=== PATIENT | female | born 1980 ===

== ENCOUNTER 2016-08-04 02:10 | Emergency (ER) | payer OTHER ==
--- NOTE | 2016-08-04 03:19 | OBHP ---
Datetime: 08/04/2016 03:11 IP Adm Impression: , intrauterine IP Admit Plan: Observation/Evaluation; Discharge home Admit Comment, IP Provider: 35yo edc 11/08 @ 26/2kws presents with c/o passage of copious amount of brown discharge today @ 23:00. She denies bleeding, ctxs, pprom. + coitus 3-4days ago. denies t hreatened ptl with current pre pobhx: x1 allerg wheat; shellfish medic: pnv; zofran prn pshx: choly pmhx: ashthm not on medic i: Brown vag d/c- resolved p: d/w dr huntley pelvic rest, increase water intake f/u next wk with Pelvic Type - PN: Adequate Extremities - PN: Normal Abdomen - PN: Normal Lungs - PN: Normal Heart - PN: Normal Neurologic - PN: Normal HEENT - PN: Normal General - PN: Normal FHR - Baseline A Provider: 130 Membranes, Provider: Intact Contraction Comments Provider: no Comments, ACOG Physical Exam: SSE: SCANT YELLLW BROWN CERVICAL MUCUS no blood cl/th/h Pool Provider: Negative EGA AdmitDate IP: 26.2 Vital Signs Provider: Within Normal Limits IP Chief Complaint: Vaginal bleeding NICHD Variability Prov Fetus A: Moderate 6-25bpm NICHD Accel Fetus A IP Provider: 10X10 FHR Category Provider Fetus A: Category I NICHD Decel Fetus A IP Provider: None Dilatation, Provider: 0 Effacement, Provider: 0 Station, Provider: high Genitourinary Exam: Normal Datetime: 04/23/2016 07:07 Gestation - Est Wks by US: 11 wks Datetime: 04/22/2016 11:31 IP Fetus A Comments: FM + by danielle
[2016-08-04 03:58] VITALS: BMI 38.9
[2016-08-04] MEDS ORDERED: Prenatal Multivit/Folic Acid/Iron Tab PO SCH (09:00)
== END 2016-08-04 03:30 | disposition home or self-care (01) ==
LOC: H.EROB2 02:10
DX: O26.92 Pregnancy related conditions, unspecified, second trimester (principal); N89.8 Other specified noninflammatory disorders of vagina; Z3A.26 26 weeks gestation of pregnancy; O47.02 False labor before 37 completed weeks of gestation, second trimester

== ENCOUNTER 2016-08-22 17:17 | Emergency (ER) | payer OTHER ==
[2016-08-22 17:51] VITALS: BMI 33.3
[2016-08-22] MEDS ORDERED: Lactated Ringer's 1,000 ML IV ONE (18:00)
--- NOTE | 2016-08-22 18:39 | OBHP ---
Datetime: 08/22/2016 18:34 IP Adm Impression: , intrauterine ; No Active Labor; Intact Membranes IP Admit Plan: Observation/Evaluation; Discharge home Admit Comment, IP Provider: The patient is a 36-year-old 2 para 1 last menstrual period 01/23 estimated due date 11/08/2016 estimated gestational age 28 weeks patient presents to labor and delivery complaining at nausea and vomiting for 3 days duration patient reports vomiting multiple ti mes over the last several days. Patient denies any vaginal bleeding contractions or leakage of fluid. Patient states she called her PMD and was instructed to come to the hospital. Past medical history asthma Medications vitamins Surgical history patient had her gallbladder removed No known drug allergies, allergic to shellfish Social history denies alcohol tobacco use Obstetrical history one normal spontaneous vaginal delivery no complications Review of systems patient denies headache chest pain shortness of breath or cold intolerance easy bruisability musculoskeletal or neurological complaints vaginal bleeding dysuria positive for nausea positive for vomiting Vital signs stable afebrile Physical exam see notes Intrauterine at 28 weeks nausea vomiting Routine labs IV fluid hydration Review records from Dr. Campa's office Zofran for nausea External monitoring Observation Pelvic Type - PN: Not Done Extremities - PN: Normal Abdomen - PN: Normal Back - PN: Normal Breast - PN: Not Done Lungs - PN: Normal Heart - PN: Normal Thyroid - PN: Normal Neurologic - PN: Normal HEENT - PN: Normal General - PN: Normal FHR - Baseline A Provider: 145 Gestation - Est Wks by US: 28.0 EGA AdmitDate IP: 28.6 Vital Signs Provider: Reviewed IP Chief Complaint: Other NICHD Variability Prov Fetus A: Moderate 6-25bpm NICHD Accel Fetus A IP Provider: 10X10 FHR Category Provider Fetus A: Category I NICHD Decel Fetus A IP Provider: None Genitourinary Exam: Not Done DTRs - PN: Normal
[2016-08-22 18:43] LABS: BASO % 0.4 % (0.0-2.0); EOS # 0.1 K/uL (0.0-0.7); EOS % 1.8 % (0.0-4.0); HEMATOCRIT 36.1 % (34.0-47.0); LYMPH # 1.6 K/uL (1.0-4.3); LYMPH % 21.4 % (20.0-40.0); MEAN CELL VOLUME 87.5 fl (81.0-99.0); MEAN CORPUSCULAR HEMOGLOBIN 28.9 pg (27.0-31.0); MEAN PLATELET VOLUME 9.5 fl (7.2-11.7); MONO # 0.6 K/uL (0.0-0.8); MONO % 8.2 % (0.0-10.0); NEUT # 5.3 K/uL (1.8-7.0); NEUT % 68.2 % (50.0-75.0); NRBC % 0.1 % (0.0-0.0); RED CELL DISTRIBUTION WIDTH 13.9 % (11.5-14.5); WHITE BLOOD COUNT 7.7 K/uL (4.8-10.8)
[2016-08-22 18:53] LABS: ALB/GLOB RATIO 1.1 (1.0-2.1); ALKALINE PHOSPHATASE 188 U/L (38-126); ALT/SGPT 33 U/L (9-52); AST/SGOT 27 U/L (14-36); BILIRUBIN,TOTAL 0.2 mg/dl (0.2-1.3); BLOOD UREA NITROGEN 7 mg/dl (7-17); CALCIUM 9.1 mg/dL (8.4-10.2); CARBON DIOXIDE 23 mmol/L (22-30); CHLORIDE 102 mmol/L (98-107); GFR AFRICAN-AMERICAN > 60; GLUCOSE,RANDOM 135 mg/dL (65-105); POTASSIUM 3.3 MMOL/L (3.6-5.0); SODIUM 136 mmol/l (132-148); TOTAL PROTEIN 7.2 G/DL (6.3-8.2)
[2016-08-22] MEDS ORDERED: Lactated Ringer's 1,000 ML IV SCH ×2 (20:00→22:00)
--- NOTE | 2016-08-23 08:17 | OBPN ---
Datetime: 08/22/2016 18:34 IP Progress Impression Other: hyperemesis gravidarum improved IP Progress Plan: Discharge Membranes, Provider: Intact Contraction Comments Provider: none FHR - Baseline A Provider: 145 Gestation - Est Wks by US: 28.0 IP Progress Note Comment: pt was watch overnight and tx'd with iv meds and improved now tolerating f luids and wants to go home Will continue po hydration and po Zofram at home and follow up in office n ext wk NICHD Accel Fetus A IP Provider: 10X10 FHR Category Provider Fetus A: Category I NICHD Variability Prov Fetus A: Moderate 6-25bpm Dilatation, Provider: closed Effacement, Provider: none NICHD Decel Fetus A IP Provider: None Datetime: 08/04/2016 03:11 Pool Provider: Negative Vital Signs Provider: Within Normal Limits Station, Provider: high
== END 2016-08-23 08:15 | disposition home or self-care (01) ==
LOC: H.EROB2 17:17
DX: O21.0 Mild hyperemesis gravidarum (principal); Z3A.28 28 weeks gestation of pregnancy

== ENCOUNTER 2016-09-30 18:09 | Emergency (ER) | payer OTHER ==
[2016-09-30] MEDS ORDERED: Lactated Ringer's 1,000 ML IV SCH (18:50)
--- NOTE | 2016-09-30 19:00 | OBHP ---
Datetime: 09/30/2016 18:52 IP Adm Impression: , intrauterine ; No Active Labor; Intact Membranes IP Admit Plan: Observation/Evaluation Admit Comment, IP Provider: 36-year-old 001 at 34 weeks and 3 days gestational age presents to OB ED complaining of cramping and lower abdominal discomfort. Patient also reports 1 day history of nausea and vomiting. Patient reports that nausea and vomiting have been a chronic problem throughout . Patient is currently taking medications to control nausea. Otherwise, patient without comp laints. Patient denies any contractions, vaginal bleeding, leakage of fluids. Patient reports good fe gautam movement. records reviewed. Review of systems: Patient denies any changes in weight, fevers or chills, difficulty sleeping, headaches. Patient reports diarrhea for the past 3 days Patient denies any dysuria, hematuria, frequency. Past medical history none Past surgical history cholecystectomy 2016 Medications vitamins, Zofran when necessary No known drug allergies Obstetrical history full-term normal spontaneous vaginal delivery 1 Social history no tobacco, no alcohol, no drugs Physical exam: Refer to physical exam findings Assessment: 36-year-old 001 at 34 weeks and 3 days gestational age with cramping and abdominal discomfor t. No evidence of labor at this time. Both maternal well-being and well-being reassurin g at this time. Plan: Check CBC, CMP, amylase, lipase, liver function tests, urinalysis IV fluid hydration Continue observation We'll reassess Discussed plan with patient and all patient questions answered. Pelvic Type - PN: Adequate Extremities - PN: Normal Abdomen - PN: Normal Back - PN: Normal Breast - PN: Normal Lungs - PN: Normal Heart - PN: Normal Thyroid - PN: Normal Neurologic - PN: Normal HEENT - PN: Normal General - PN: Normal FHR - Baseline A Provider: 140s-150s Membranes, Provider: Intact Contraction Comments Provider: occasional irritability Comments, ACOG Physical Exam: Cervix: Long, closed, posterior No fluid, no blood, no discharge Abdomen: Soft, nontender, nondistended, gravid No rebound, no guarding No CVA tenderness bilaterally Pool Provider: Negative EGA AdmitDate IP: 34.3 Vital Signs Provider: Reviewed; Within Normal Limits IP Chief Complaint: Illness; Maternal discomfort NICHD Variability Prov Fetus A: Moderate 6-25bpm NICHD Accel Fetus A IP Provider: 15X15 FHR Category Provider Fetus A: Category I NICHD Decel Fetus A IP Provider: None Dilatation, Provider: 0 Effacement, Provider: 0 Station, Provider: -4 Genitourinary Exam: Normal DTRs - PN: Normal
[2016-09-30 19:01] VITALS: BMI 38.9
[2016-09-30 19:41] LABS: BASO % 0.1 % (0.0-2.0); EOS # 0.1 K/uL (0.0-0.7); EOS % 0.6 % (0.0-4.0); HEMOGLOBIN 12.1 g/dL (12.0-16.0); LYMPH # 1.7 K/uL (1.0-4.3); LYMPH % 16.3 % (20.0-40.0); MEAN CELL VOLUME 85.2 fl (81.0-99.0); MEAN CORPUSCULAR HEMOGLOBIN 28.9 pg (27.0-31.0); MEAN CORPUSCULAR HGB CONC 33.9 g/dL (33.0-37.0); MEAN PLATELET VOLUME 9.4 fl (7.2-11.7); MONO # 0.6 K/uL (0.0-0.8); MONO % 5.6 % (0.0-10.0); NEUT # 8.1 K/uL (1.8-7.0); NEUT % 77.4 % (50.0-75.0); RBC 4.17 Mil/uL (3.80-5.20); RED CELL DISTRIBUTION WIDTH 14.1 % (11.5-14.5); WHITE BLOOD COUNT 10.5 K/uL (4.8-10.8)
[2016-09-30 19:42] LABS: SQUAMOUS EPITHIAL 6 /hpf (0-5); URINE BACTERIA OCC (<OCC); URINE BILIRUBIN SMALL (NEGATIVE); URINE BLOOD NEGATIVE (NEGATIVE); URINE CLARITY CLOUDY (Clear); URINE COLOR AMBER (YELLOW); URINE GLUCOSE (UA) 50 mg/dL (Normal); URINE LEUKOCYTE ESTERASE MOD Leu/uL (Negative); URINE NITRATE NEGATIVE (NEGATIVE); URINE PROTEIN 100 mg/dL (NEGATIVE); URINE UROBILINOGEN 0.2-1.0 mg/dL (0.2-1.0)
[2016-09-30 19:47] LABS: ALB/GLOB RATIO 1.1 (1.0-2.1); ALBUMIN 3.7 g/dL (3.5-5.0); ALT/SGPT 45 U/L (9-52); AST/SGOT 28 U/L (14-36); BLOOD UREA NITROGEN 7 mg/dl (7-17); CALCIUM 9.4 mg/dL (8.4-10.2); GFR AFRICAN-AMERICAN > 60; GFR NON-AFRICAN AMERICAN > 60; URIC ACID 3.1 mg/Dl (2.2-7.5)
== END 2016-09-30 23:05 | disposition home or self-care (01) ==
LOC: H.EROB2 18:09
DX: O26.93 Pregnancy related conditions, unspecified, third trimester (principal); R10.2 Pelvic and perineal pain; O47.03 False labor before 37 completed weeks of gestation, third trimester; Z3A.34 34 weeks gestation of pregnancy

== ENCOUNTER 2016-10-26 23:49 | Inpatient (IN) | payer OTHER ==
[2016-10-27 01:00] VITALS: BMI 33.2
[2016-10-27] MEDS ORDERED: Oxytocin 30 units/LR 500ML 30 U/500 ML BAG IV SCH ×2 (01:30→12:02)
[2016-10-27] MEDS: Lactated Ringer's 1,000 ML IV SCH ×2 (02:00→06:30)
[2016-10-27 02:38] LABS: BASO % 0.4 % (0.0-2.0); EOS # 0.1 K/uL (0.0-0.7); EOS % 0.8 % (0.0-4.0); HEMOGLOBIN 12.3 g/dL (12.0-16.0); LYMPH # 2.2 K/uL (1.0-4.3); LYMPH % 21.3 % (20.0-40.0); MEAN CELL VOLUME 86.3 fl (81.0-99.0); MEAN CORPUSCULAR HEMOGLOBIN 28.8 pg (27.0-31.0); MEAN CORPUSCULAR HGB CONC 33.4 g/dL (33.0-37.0); MEAN PLATELET VOLUME 10.2 fl (7.2-11.7); MONO # 0.7 K/uL (0.0-0.8); MONO % 6.9 % (0.0-10.0); NEUT # 7.2 K/uL (1.8-7.0); NEUT % 70.6 % (50.0-75.0); RBC 4.26 Mil/uL (3.80-5.20); RED CELL DISTRIBUTION WIDTH 14.9 % (11.5-14.5); WHITE BLOOD COUNT 10.2 K/uL (4.8-10.8)
--- NOTE | 2016-10-27 05:47 | OBADHP ---
Datetime: 10/27/2016 05:41 Admit Comment, IP Provider: admit to unit GBS neg Extremities - PN: Normal Abdomen - PN: Abnormal Back - PN: Normal Breast - PN: Normal Lungs - PN: Normal Heart - PN: Normal Thyroid - PN: Normal Neurologic - PN: Normal HEENT - PN: Normal General - PN: Normal Presentation-Admit: [facility] FHR - Baseline A Provider: 150 Membranes, Provider: Intact Contraction Comments Provider: 3-6 min Comments, ACOG Physical Exam: abd soft gravid, NT Ext no calf tenderness Gestation - Est Wks by US: 38+ wks Pool Provider: Negative IP Hx Assessment: The History has been Reviewed and is Current Vital Signs Provider: Reviewed IP Chief Complaint: Uterine contractions; Maternal discomfort NICHD Variability Prov Fetus A: Moderate 6-25bpm NICHD Accel Fetus A IP Provider: 10X10 Dilatation, Provider: 4cm Effacement, Provider: 50% Station, Provider: h Genitourinary Exam: Normal DTRs - PN: Normal EGA AdmitDate IP: 38.2 IP Adm Impression: Term, intrauterine ; Active labor IP Admit Plan: Admit to unit; Initiate labor protocol Datetime: 09/30/2016 18:52 Pelvic Type - PN: Adequate FHR Category Provider Fetus A: Category I NICHD Decel Fetus A IP Provider: None Datetime: 04/22/2016 11:31 IP Fetus A Comments: FM + by danielle
[2016-10-27] MEDS ORDERED: Bupivacaine HCl 0.25% PF (10 ml) Inj ONE (09:01)
[2016-10-27] MEDS ORDERED: Fentanyl/Bupivacaine HCl 250 ML EPI ONE (09:01)
--- NOTE | 2016-10-27 11:59 | OBDS ---
DELIVERY PERSONNEL Delivery Doctor: Karen Campa MD Hazmat Tanker Driver: Yeny Reyez RN MATERNAL INFORMATION Delivery Anesthesia: Epidural Estimated Blood Loss (ml): 250cc Maternal Complications: None Provider Comments: Delivered a living baby boy appears term cried spontaneously, 9/9, AF clear Placenta complete and intact Small laceration repaired as above. LABOR SUMMARY EDC: 11/08/2016 00:00 No. Babies in Womb: 1 Attempted: No Labor Anesthesia: Epidural LABOR INFORMATION Reason for Induction: Not Applicable Onset of Labor: 10/26/2016 22:00 Complete Dilatation: 10/27/2016 11:30 Other Ripening Agents: none Oxytocin: Augmentation Group B Beta Strep: Negative Steroids Given: None Reason Steroids Not Administered: Not Applicable MEMBRANES Membranes Rupture Method: Artificial Rupture of Membranes: 10/27/2016 11:24 Length of Rupture (hrs): 0.20 Amniotic Fluid Color: Clear Amniotic Fluid Amount: Moderate Amniotic Fluid Odor: None STAGES OF LABOR Stage 1 hrs: 13 Stage 1 min: 30 Stage 2 hrs: 0 Stage 2 min: 6 Stage 3 hrs: 0 Stage 3 min: 3 Total Time in Labor hrs: 13 Total Time in Labor min: 39 VAGINAL DELIVERY Episiotomy: None Laceration Extension: First Degree Laceration Type: Perineal Laceration Repair Note: small perineal laceration 1st dg repaired with 2-0 chromic without any compl ications Initial Vag Sponge Count: 5 Final Vag Sponge Count: 5 Initial Vag Sharps Count: 1 Final Vag Sharps Count: 1 Sponge Count Correct: Yes Sharps Count Correct: Yes Count Comment: count correct CSECTION DELIVERY Primary Indication: N/A CSection Urgency: N/A Labor: N/A CSection Incision: N/A BABY A INFORMATION Infant Delivery Date/Time: 10/27/2016 11:36 Method of Delivery: Vaginal Born in Route : No : N/A Forceps: N/A Vacuum Extraction: N/A Shoulder Dystocia : No SHOULDER DYSTOCIA BABY A Delivery Date/Time: 10/27/2016 11:36 PRESENTATION/POSITION BABY A Presentation: Cephalic Cephalic Presentation: Vertex Breech Presentation: N/A PLACENTA INFORMATION BABY A Placenta Delivery Time : 10/27/2016 11:39 Placenta Method of Delivery: Spontaneous Placenta Status: Delivered SCORES BABY A Heart Rate 1 min: >100 bpm Resp Effort 1 min: Good Cry Reflex Irritability 1 min: Cough or Sneeze or Pulls Away Muscle Tone 1 min: Active Motion Color 1 min: Body [place], Extremities Blue Resuscitation Effort 1 min: N/A SCORE 1 MIN: 9 Heart Rate 5 min: >100 bpm Resp Effort 5 min: Good Cry Reflex Irritability 5 min: Cough or Sneeze or Pulls Away Muscle Tone 5 min: Active Motion Color 5 min: Body [place], Extremities Blue Resuscitation Effort 5 min: N/A SCORE 5 MIN: 9 Resuscitation Effort 10 min: N/A INFORMATION BABY A Gestational Age at Delivery: 39+ Gestational Status: Term Outcome : Liveborn Infant Condition : Stable Sex: Male IDENTIFICATION/MEDS BABY A ID Band Number: [id number] ID Band Location: Left Leg Sensor Location : Left Leg CORD INFORMATION BABY A No. Cord Vessels: 3 Nuchal Cord : N/A Cord Blood Taken: Yes Suction: Mouth ASSESSMENT BABY A Infant Complications: None Physical Findings at Delivery: Within Normal Limits Respirations: Appears Normal Arc Cutter/ALS Called : No Transferred To: Remains with Mother
[2016-10-27] MEDS ORDERED: Oxycodone/Acetaminophen 5/325 mg Tab PO PRN ×2 (12:02→17:56)
[2016-10-28 07:20] LABS: HEMOGLOBIN 11.2 g/dL (12.0-16.0); MEAN CORPUSCULAR HEMOGLOBIN 28.8 pg (27.0-31.0); MEAN CORPUSCULAR HGB CONC 33.1 g/dL (33.0-37.0); RBC 3.88 Mil/uL (3.80-5.20); WHITE BLOOD COUNT 9.2 K/uL (4.8-10.8)
--- NOTE | 2016-10-28 11:46 | OBPPN ---
Datetime: 10/28/2016 11:41 PP Pain Prov: Within normal limits PP Pain Prov comment: No OB, chest pains or leg pain PP Nausea Prov: Denies PP Flatus Prov: Yes PP Nausea Prov comment: voiding well PP Breasts Prov: Normal PP Lungs Prov: Normal PP Abdomen/Uterus Prov: Abnormal PP Lochia Prov: Normal PP Vulva/Perineum Prov: Not Done PP CVA Tenderness Prov: Normal PP Extremities Prov: Normal PP C/S Incision Prov: Not Applicable PP Progress Prov: Not Applicable PP Comments Phys Exam Prov: Abd soft ND fundus firm below the umb NT Ext no calf tenderness PP Impression Prov: Normal progression PP Plan Prov: Continue present management PP Progress Note Prov: OOB and ambulation Continue PP care IP PP Procedures: None Vital Signs Provider PP: Reviewed
--- NOTE | 2016-10-29 06:41 | OBDCSUM ---
Datetime: 10/29/2016 06:39 Discharged to, Provider: Home Follow up at, Provider: Dr Campa Disch Instr Activity: Bedrest; May be up to bathroom; May be up for meals; May Shower Disch Instr Diet: Regular Discharge Instructions, Provider: Routine instructions given Discharge Diagnosis, Provider: Term Delivered Discharge Time: 10/29/2016 06:39 Follow up in weeks, Provider: 4-6 wks Disch Referrals: None Contraception discussed, Prov: Yes Disch Activity Restrictions: No exercising; No lifting; No driving; Minimize walking; Minimize stair -climbing; No sexual activity; Nothing in vagina - [place], tampons, douche Discharge Comment, Provider: Continue PNC vit and pelvic rest Contraception after Delivery: Undecided
--- NOTE | 2016-10-29 06:41 | OBPPN ---
Datetime: 10/29/2016 06:37 PP Pain Prov: Within normal limits PP Pain Prov comment: No SOB, chest pains or leg pain PP Nausea Prov: Denies PP Flatus Prov: Yes PP Nausea Prov comment: voiding well PP Breasts Prov: Normal PP Lungs Prov: Normal PP Abdomen/Uterus Prov: Abnormal PP Lochia Prov: Normal PP CVA Tenderness Prov: Normal PP Extremities Prov: Normal PP C/S Incision Prov: Not Applicable PP Progress Prov: Not Applicable PP Comments Phys Exam Prov: Abd soft ND, fundus firm below the umb, NT; Ext no calf tenderness or l eg edema PP Impression Prov: Normal progression PP Plan Prov: Discharge PP Progress Note Prov: D/C home with instructions IP PP Procedures: None Vital Signs Provider PP: Reviewed
[2016-10-29 16:17] VITALS: BP 119/73; PULSE 82; RESP 20; TEMP 97.3; O2SAT 100
== END 2016-10-29 11:58 | disposition home or self-care (01) | DRG 373 ==
LOC: H.EROB2 23:49 → H.EROB 10-27 00:11 → H.L&D 10-27 01:00 → H.EROB2 10-27 01:09 → H.OB/GYN 10-27 16:44
PROVIDERS: ADMIT Specialist; ATTEND Specialist
PROC: 10E0XZZ Delivery of Products of Conception, External Approach (ICD-10-PCS; principal; 2016-10-27)
PROC: 0HQ9XZZ Repair Perineum Skin, External Approach (ICD-10-PCS; 2016-10-27)
PROC: 10907ZC Drainage of Amniotic Fluid, Therapeutic from Products of Conception, Via Natural or Artificial Opening (ICD-10-PCS; 2016-10-27)
PROC: 4A1HXCZ Monitoring of Products of Conception, Cardiac Rate, External Approach (ICD-10-PCS; 2016-10-27)
DX: O70.0 First degree perineal laceration during delivery (principal); Z91.013 Allergy to seafood; Z37.0 Single live birth; Z3A.39 39 weeks gestation of pregnancy

== ENCOUNTER 2017-06-07 21:31 | Emergency (ER) | payer MEDICAID, OTHER ==
[2017-06-07 21:31] VITALS: BMI 33.2
[2017-06-07 21:48] VITALS: BP 128/78; PULSE 81; RESP 17; TEMP 97.8; O2SAT 100
[2017-06-07] MEDS ORDERED: Penicillin G Benzathine 2.4 Mill Unit/4 ml Syr IM ONE (22:23)
--- NOTE | 2017-06-07 22:26 | ED PDOC ---
HPI: Female Pain Time Seen by Provider: 06/07/17 21:52 Chief Complaint (Nursing): Female Genitourinary History Per: Patient History/Exam Limitations: no limitations Additional Complaint(s): 36 yo F reports painless ulcers to the L labia for the past few days. She is sexually active with 1 male partner, who she has been with for several years. Has used no over the counter preparation. Otherwise: (-) abdominal pain, (-) dysuria, (-) fever, (-) urinary symptoms, (-) recent antibiotic use. Past Medical History Vital Signs: Last Vital Signs Temp 97.8 F 06/07/17 21:42 Pulse 81 06/07/17 21:42 Resp 17 06/07/17 21:42 BP 128/78 06/07/17 21:42 Pulse Ox 100 06/07/17 21:42 - Medical History PMH: Asthma, Diabetes, Fractures (arm), Gall Bladder Disease (s/p cholecystectomy) Denies: Depression, HTN - Surgical History Surgical History: Cholecystectomy - Family History Family History: States: Unknown Family Hx - Immunization History Hx Tetanus Toxoid Vaccination: No Hx Influenza Vaccination: No Hx Pneumococcal Vaccination: No - Home Medications Home Medications: Ambulatory Orders Medication Instructions Recorded Multivit/Folic Acid/I 1 tab PO DAILY 04/19/16 [] Acyclovir [Zovirax] 400 mg PO TID #21 tab 06/07/17 - Allergies Allergies/Adverse Reactions: Allergies Allergy/AdvReac Type Severity Reaction Status Date / Time shellfish derived Allergy ANAPHYLAXIS Verified 06/07/17 21:48 wheat AdvReac RASH Verified 06/07/17 21:48 Review of Systems Constitutional: Negative for: Fever, Malaise Gastrointestinal: Negative for: Nausea, Abdominal Pain, Diarrhea Genitourinary Female: Positive for: Rash. Negative for: Dysuria, Frequency, Incontinence, Vaginal Discharge, Vaginal Bleeding Physical Exam - Physical Exam Comments: GENERAL APPEARANCE: Patient is awake, alert, oriented x 3, in no acute distress. SKIN: Warm, dry; (-) cyanosis, (-) rash. ABDOMEN AND GI: Soft, (-) tenderness. PELVIC: Normal external genitalia; (-) vesicles, (-) 3 non-tender ulcers to the L labia minora, (-) vaginal discharge; (-) bleeding. A female tech manager mobility was present with me during the entire examination. EXTREMITIES: (-) lymphadenopathy, (-) deformity. - ECG O2 Sat by Pulse Oximetry: 100 Medical Decision Making Medical Decision Making: Impression : genital ulcers, consider chancroid Plan : -Zithromax 1 g PO - therapeutic treatment of chancroid -PCN benzathine 2.4 million units IM - empiric treatment for syphillis -Rx for acyclovir 400 mg TID x 7 days - empiric treatment for HSV -Advised to f/u with her network technology instructor for STD testing. Patient notified of likely Dx, will provide empiric tx for syphilis and HSV as per current guidelines. Advised to abstain from any sexual activity until ulcers heal. Advised to follow up with network technology instructor in 1-2 days without fail. Advised to take medication as prescribed. Return to the emergency room at any time for any new or worsening symptoms. Patient states she fully agrees with and understands discharge instructions. States that she agrees with the plan and disposition. Verbalized and repeated discharge instructions and plan. I have given the patient opportunity to ask any additional questions. Disposition - Clinical Impression Clinical Impression: Genital ulcer, female - Patient ED Disposition Is Patient to be Admitted: No Counseled Patient/Family Regarding: Diagnosis, Need For Followup, Rx Given - Disposition Disposition: Routine/Home Disposition Time: 22:30 Condition: STABLE Additional Instructions: Thank you for letting us take care of you today. You were treated for genital ulcer, consider chancroid. The emergency medical care you received today was directed at your acute symptoms. If you were prescribed any medication, please fill it and take as directed. It may take several days for your symptoms to resolve. Return to the Emergency Department if your symptoms worsen, do not improve, or if you have any other problems. Please contact your doctor in 2 days for re-evaluation and follow up. Bring any paperwork you were given at discharge with you along with any medications you are taking to your follow up visit. Our treatment cannot replace ongoing medical care by a primary care provider (PCP) outside of the emergency department. Thank you for allowing the [facility] team to be part of your care today. Prescriptions: Acyclovir [Zovirax] 400 mg PO TID #21 tab Instructions: Screening for Sexually Transmitted Infections Forms: [employer] (Portuguese) - PA / ADMINISTRATIVE OFFICE ASSISTANT / Resident Statement MD/DO has reviewed & agrees with the documentation as recorded.
== END 2017-06-07 23:39 | disposition home or self-care (01) ==
LOC: H.ER 21:31
DX: N76.6 Ulceration of vulva (principal); E11.9 Type 2 diabetes mellitus without complications; J45.909 Unspecified asthma, uncomplicated; Z90.49 Acquired absence of other specified parts of digestive tract
CPT/HCPCS: 81025; 96372; 99283; J0561

== ENCOUNTER 2017-11-01 06:23 | Day surgery (SDC) | payer OTHER ==
[2017-10-30 09:47] VITALS: BMI 40.7
[2017-11-01] MEDS ORDERED: Lactated Ringer's 1,000 ML IV ONE ×2 (07:05→08:36)
[2017-11-01] MEDS ORDERED: Bupivacaine HCl 0.5% PF (30 ml) Inj ONE (07:08)
[2017-11-01] MEDS ORDERED: cefOXitin IV 1 gm in Dextrose 1 GM/50 ML BAG IVPB ONE (07:09)
[2017-11-01] MEDS ORDERED: Rocuronium 10 mg/ml (5 ml) ONE (07:33)
[2017-11-01] MEDS ORDERED: Midazolam 2 MG/2 ML VIAL ONE (07:33)
[2017-11-01] MEDS ORDERED: Propofol 10 mg/ml Inj (20 ML) ONE (07:33)
[2017-11-01] MEDS ORDERED: Succinylcholine 200 mg/10 ml Inj IV ONE (07:34)
[2017-11-01] MEDS ORDERED: Neostigmine 1:1000 (1 mg/ml) Inj ONE (07:34)
[2017-11-01 07:43] LABS: BASO # 0.1 K/uL (0.0-0.2); BASO % 0.8 % (0.0-2.0); EOS # 0.4 K/uL (0.0-0.7); EOS % 3.8 % (0.0-4.0); HEMOGLOBIN 13.8 g/dL (12.0-16.0); LYMPH % 39.8 % (20.0-40.0); MEAN CELL VOLUME 89.8 fl (81.0-99.0); MEAN CORPUSCULAR HGB CONC 33.4 g/dL (33.0-37.0); MONO # 0.6 K/uL (0.0-0.8); MONO % 6.5 % (0.0-10.0); NEUT # 4.9 K/uL (1.8-7.0); NEUT % 49.1 % (50.0-75.0); NRBC % 0.1 % (0.0-0.0); RBC 4.58 Mil/uL (3.80-5.20); RED CELL DISTRIBUTION WIDTH 13.5 % (11.5-14.5)
--- NOTE | 2017-11-01 07:59 | CP.SDSHP ---
Same Day Surgery H & P - History Proposed Procedure: laparoscopic BTL Pre-Op Diagnosis: multiparity/vol sterilization - Previous Medical/Surgical History Pulmonary: Asthma Pain: 0. No Pain Previous Surgical History: TOP/cholecystectomy - Allergies Allergies: Allergies shellfish derived Allergy (Verified 06/07/17 21:48) ANAPHYLAXIS wheat Adverse Reaction (Verified 06/07/17 21:48) RASH - Physical Exam Vital Signs: Vital Signs 11/01/17 11/01/17 06:45 06:48 Temperature 97.8 F Pulse Rate 83 82 Respiratory 20 Rate Blood Pressure 121/76 O2 Sat by Pulse 96 Oximetry Mental Status: Alert & Oriented x3 Neuro: WNL Heart: WNL Lungs: WNL GI: WNL - {Optional Preform as Required} Breast: WNL Abdomen: Other SECONDARY HISTORY TEACHER: WNL - Impression Impression: multiparity/vol sterilization - Date & Time Date: 11/01/17 Time: 08:00 Short Stay Discharge - Short Stay Discharge Admitting Diagnosis/Reason for Visit: Z64.1 Disposition: HOME/ ROUTINE Referrals: Leyda Wilson MD [Primary Care Provider] -
[2017-11-01] MEDS ORDERED: HYDROmorphone 1 mg/ml ISec ONE (08:56)
[2017-11-01] MEDS ORDERED: Oxycodone/Acetaminophen 5/325 mg Tab PO PRN (09:00)
[2017-11-01] MEDS: HYDROmorphone 1 mg/ml ISec IVP PRN ×2 (09:00→09:30)
[2017-11-01 09:07] LABS: MEAN PLATELET VOLUME 10.2 fl (7.2-11.7)
[2017-11-01] MEDS ORDERED: Lactated Ringer's 1,000 ML IV SCH (09:15)
[2017-11-01 10:32] VITALS: RESP 18
[2017-11-01 11:45] VITALS: O2SAT 96
[2017-11-01 12:41] VITALS: BP 118/81; PULSE 95; TEMP 98.2
--- NOTE | 2017-11-01 12:44 | CP.SDSHP ---
Same Day Surgery H & P - Allergies Allergies: Allergies shellfish derived Allergy (Verified 06/07/17 21:48) ANAPHYLAXIS wheat Adverse Reaction (Verified 06/07/17 21:48) RASH - Physical Exam Vital Signs: Vital Signs 11/01/17 11/01/17 11/01/17 06:45 06:48 08:50 Temperature 97.8 F 96.3 F L Pulse Rate 83 82 93 H Respiratory 20 18 Rate Blood Pressure 121/76 124/93 H O2 Sat by Pulse 96 100 Oximetry 11/01/17 11/01/17 11/01/17 09:05 09:20 09:35 Temperature 96.8 F L 96.4 F L 97.0 F L Pulse Rate 57 L 57 L 57 L Respiratory 18 20 20 Rate Blood Pressure 117/78 119/76 120/84 O2 Sat by Pulse 100 99 100 Oximetry 11/01/17 11/01/17 11/01/17 09:50 10:20 10:30 Temperature 97.2 F L 97.9 F Pulse Rate 56 L 64 73 Respiratory 20 18 18 Rate Blood Pressure 121/77 119/76 123/74 O2 Sat by Pulse 100 96 96 Oximetry 11/01/17 11/01/17 11/01/17 10:31 11:43 12:40 Temperature 98.4 F 98.2 F Pulse Rate 100 H 95 H Respiratory 18 18 Rate Blood Pressure 124/86 118/81 O2 Sat by Pulse 95 96 96 Oximetry Short Stay Discharge - Short Stay Discharge Admitting Diagnosis/Reason for Visit: Z64.1 Referrals: Leyda Wilson MD [Primary Care Provider] - Additional Instructions (Diet, Activity): pelvic and bed rest Appt to office 2 wks Progress Note/Discharge Note with Instructions: No operative complications Recovered well, procedure and findings explained to pt will d/c home on pelvic and bed rest Instructions given Rx for pain management given
--- NOTE | 2017-11-02 22:58 | OP ---
Copied To: Aldo Campa MD Attending MD: Aldo Campa MD PROCEDURE DATE: 11/01/2017 PREOPERATIVE DIAGNOSIS: Multiparity, voluntary sterilization, and obesity. POSTOPERATIVE DIAGNOSIS: Multiparity, voluntary sterilization, and obesity. PROCEDURE PERFORMED: Laparoscopic bilateral tubal occlusion using electrocoagulation. SURGEON: Aldo Campa MD ANESTHESIA USED: General endotracheal. ANESTHESIA ADMINISTERED BY: Ascencion Randall MD ESTIMATED BLOOD LOSS: Minimal. DRAINS: None. REPLACEMENTS USED: None. FINDINGS: 1. Cervix appears closed on posterior self and mobile. 2. Uterus appears anteverted, mobile, normal size and shape. 3. Both tubes and ovaries appear grossly within normal limits to inspection bilaterally. 4. Bilateral tubal occlusion performed using electrocoagulation without any complications. DESCRIPTION OF PROCEDURE: The patient was taken to the operating room and placed on the operating room table in supine position. Following the induction of general endotracheal incision, the patient was then replaced in a dorsal lithotomy position. Perineal, genital, and abdominal areas were then draped and prepped in the usual sterile manner. At this time, a sterile catheter was then placed into the bladder. Clear fluid was then evacuated from the bladder and the patient was then examined under anesthesia with some of the above findings. Heavy weighted speculum was then placed in the posterior wall of the vagina exposing the cervix. The anterior lip of the cervix was then grasped using a single-tooth tenaculum. Endocervical canal was then dilated using Bandar dilators in an increasing size manner. A HUMI cannula was then inserted into the endometrial cavity in order to manipulate the uterus. Single tooth tenaculum removed. No bleeding noted. Heavy weighed speculum removed and attention was then given to the abdomen and the umbilicus. A Veress needle was then introduced into the abdomen and about 5 liters of carbon dioxide was then introduced, thus, creating a normal peritoneum. Veress needle was then removed and a 1-cm incision was then made at the umbilicus. Under direct visualization, a 10-mm trocar was then introduced into the abdomen. Through the trocar sheath, a laparoscope was then introduced with visualization of the area underneath the insertion. No signs of trauma noted. At this time, we then proceeded to place a 5-mm trocar suprapubically under direct visualization. Again, no signs of trauma noted. Following this, we then proceeded to a 5-mm trocar to insert a Kleppinger forceps. The uterus was then inspected and found to be grossly within normal limits to inspection. Both tubes and ovaries appeared grossly within normal limits with inspection bilaterally. At this time, using the Kleppinger forceps, the ampullary tube of the right fallopian tube was then grasped at the ampullary region and resected superiorly. The tube had been followed with fimbriated end. At this time, under direct visualization and away from the adjacent structures, electrocoagulation was then applied. About 3-cm section of the tube was then electrocoagulated. Blanching of the tube noted to be present. Same procedure was then performed on the contralateral side without any complications. Following this, all operative area checked, hemostatically secured. No bleeding noted. Air was partially allowed to escape the abdominal cavity and a 5-mm trocar was then removed under direct visualization. No bleeding noted at this time from the trocar site. Following this, we then proceeded to evacuate the pneumoperitoneum and the 10-mm trocar was then removed under direct visualization. At the umbilicus incision, the fascia was identified. 0 Vicryl suture was placed in a [id number] manner. The skin on the umbilical and suprapubic incision was then approximated using 3-0 Monocryl. Dermabond was then applied and dressing applied. At this time, the HUMI cannula was then removed. No bleeding noted. The patient tolerated the procedure well. There were no complications. She was transferred to the recovery room in satisfactory condition. Aldo Campa MD
== END 2017-11-01 13:09 | disposition home or self-care (01) ==
LOC: H.OPSURG 06:23
PROVIDERS: ATTEND Specialist
DX: Z64.1 Problems related to multiparity (principal); J45.909 Unspecified asthma, uncomplicated; Z30.2 Encounter for sterilization; E66.9 Obesity, unspecified; Z90.49 Acquired absence of other specified parts of digestive tract
CPT/HCPCS: 36415; 58670; 85025; 86850; 86900; J0330; J0694; J1170; J2001; J2250; J2405; J2704; J2710; J3010; J7030; J7120